=== PATIENT | male | born 1965 | race African-American/Black ===

== ENCOUNTER 2023-11-05 06:53 | Inpatient (IN) | payer OTHER ==
[2023-11-02 13:54] VITALS: BMI 29.0
[2023-11-05 08:05] LABS: #Basophils 0.04 10x3/uL (0.0-0.2); %Basophils 0.7 % (0.0-1.0); %Eosinophils 1.2 % (0.0-10.0); %Lymphocytes 39.5 % (21.0-51.0); %Monocytes 8.9 % (0.0-10.0); %Neutrophils 49.5 % (42.0-75.0); Hematocrit 40.8 % (42.0-52.0); Hemoglobin 13.5 g/dL (14.0-18.0); Mean Corpuscular HGB CONC 33.1 g/dL (32.0-36.0); Mean Corpuscular Hemoglobin 27.7 pg (27.0-31.0); Mean Corpuscular Volume 83.8 fL (78.0-98.0); Platelet Count 231 10x3/uL (130-400); RBC Distribution Width 14.1 % (11.5-14.5); Red Blood Cell (RBC) Count 4.87 mill/uL (4.70-6.10)
[2023-11-05] MEDS ORDERED: Fentanyl 250 MCG/5 ML VIAL ONE (08:29)
[2023-11-05] MEDS ORDERED: PROPOFOL 20 ML ONE (08:29)
[2023-11-05] MEDS ORDERED: Rocuronium Bromide 10 MG/ML (10ML VIAL) ONE (08:29)
[2023-11-05] MEDS ORDERED: Lidocaine 1% PF 5 ML VIAL ONE (08:29)
[2023-11-05 08:58] LABS: Anion Gap 13 mmol/L (10-20); BUN (Urea Nitrogen) 14 mg/dL (8.4-25.7); Calc. Creatinine Clearance 88 mL/min (70-130); Calcium 9.4 mg/dL (7.8-10.44); Carbon Dioxide 22 mmol/L (22-29); Chloride 107 mmol/L (98-107); Estimated GFR 69; Glucose 108 mg/dL (70-105); Potassium 4.1 mmol/L (3.5-5.1); Sodium 138 mmol/L (136-145)
[2023-11-05] MEDS ORDERED: Vancomycin 1 GM VIAL ONE (09:10)
[2023-11-05] MEDS ORDERED: Sodium Chloride 0.9% 100 ML ONE (09:18)
[2023-11-05] MEDS ORDERED: CEFAZOLIN 2 GM VIAL ONE (09:18)
[2023-11-05] MEDS ORDERED: PHENYLEPHRINE-NS 100 MCG/ML 10 ML SYRINGE ONE (09:58)
[2023-11-05] MEDS ORDERED: PACU-Morphine 4MG/ML VIAL SLOW IVP PRN (10:46)
[2023-11-05] MEDS ORDERED: Promethazine HCl 25 MG/ML VIAL IM PRN (10:46)
[2023-11-05] MEDS ORDERED: Morphine Sulfate 2 MG/ML SYRINGE SLOW IVP PRN (10:46)
[2023-11-05] MEDS ORDERED: HYDROmorphone 2 MG/ML VIAL SLOW IVP PRN (10:46)
[2023-11-05] MEDS ORDERED: Ondansetron HCl/PF 4 MG/2 ML Vial IVP PRN (10:46)
[2023-11-05] MEDS ORDERED: SUGAMMADEX SODIUM 200 MG/2 ML VIAL ONE (10:52)
[2023-11-05] MEDS ORDERED: Ketorolac Tromethamine 30 MG (1 mL) VIAL ONE (10:53)
[2023-11-05] MEDS ORDERED: Dexamethasone 20 MG/5 ML VIAL ONE (10:53)
[2023-11-05] MEDS ORDERED: Ondansetron PF 4 MG/2 ML Vial ONE (10:53)
[2023-11-05] MEDS ORDERED: Acetaminophen/Codeine 30-300mg Tablet PO PRN ×2 (10:59)
[2023-11-05] MEDS ORDERED: diphenhydrAMINE 50 MG/ML VIAL IVP PRN (10:59)
[2023-11-05] MEDS ORDERED: Milk Of Magnesia 30 ML UDCUP PO PRN (10:59)
[2023-11-05] MEDS ORDERED: Ondansetron PF 4 MG/2 ML Vial IVP PRN (10:59)
[2023-11-05] MEDS ORDERED: Mag-Al 1200 mg/1200 mg/30 ML UDCUP PO PRN (10:59)
[2023-11-05] MEDS ORDERED: fentaNYL 50 mcg/mL 1 mL Vial ONE ×2 (11:38→12:27)
[2023-11-05] MEDS ORDERED: HYDROmorphone 0.5 MG/0.5 ML SYRINGE ONE (11:54)
[2023-11-05] MEDS: Morphine 2 MG/ML VIAL SLOW IVP PRN (14:51)
[2023-11-05] MEDS: Cyclobenzaprine 10 MG TAB PO PRN (14:52)
[2023-11-05] MEDS: CEFAZOLIN 2 GM in Sodium Chloride 0.9% 100 ML IVPB SCH (18:16)
[2023-11-05] MEDS: Sodium Chloride 0.9% 1,000 ML IV SCH (20:09)
[2023-11-05] MEDS: Pregabalin 75 MG CAP PO SCH (20:17)
[2023-11-06] MEDS: Tamsulosin HCl 0.4 MG CAP PO SCH (05:05)
[2023-11-06 07:44] VITALS: TEMP 97.8
[2023-11-06] MEDS: Aripiprazole 10 MG TAB PO SCH (08:44)
[2023-11-06 11:54] VITALS: BP 107/64
[2023-11-06] MEDS: traMADol HCl 50 MG TAB PO PRN (12:09)
== END 2023-11-06 14:13 | disposition home or self-care (01) | DRG 460 ==
LOC: SURG A 06:53
PROVIDERS: ADMIT Neurological Surgery; ATTEND Neurological Surgery
PROC: 0SP004Z Removal of Internal Fixation Device from Lumbar Vertebral Joint, Open Approach (ICD-10-PCS; principal; 2023-11-05)
PROC: 0SG1071 Fusion of 2 or more Lumbar Vertebral Joints with Autologous Tissue Substitute, Posterior Approach, Posterior Column, Open Approach (ICD-10-PCS; 2023-11-05)
PROC: 01NB0ZZ Release Lumbar Nerve, Open Approach (ICD-10-PCS; 2023-11-05)
PROC: 00NY0ZZ Release Lumbar Spinal Cord, Open Approach (ICD-10-PCS; 2023-11-05)
DX: M48.062 Spinal stenosis, lumbar region with neurogenic claudication (principal); Z98.890 Other specified postprocedural states; Z79.899 Other long term (current) drug therapy; F32.A Depression, unspecified; Z98.1 Arthrodesis status
CPT/HCPCS: 80048; 85025; 93005; 93010; C1713; C1889; J1100; J1170; J1885; J2272; J2405; J2704; J3010; J3370; J3490